=== PATIENT | female | born 1980 | race Caucasian/White ===

== ENCOUNTER 2016-09-26 19:19 | Inpatient (IN) | payer MEDICAID ==
--- NOTE | ~2016-09-26 | PN ---
Unit #: [id number] #: [id number] Patient: ISABEL MOREJON [id number] [facility] [address] [place] [address] [id number] I MR#: [id number] NAME: ISABEL MOREJON ROOM: [facility] Age: 36 Sex: F Admission Date: 09/26/2016 : 1980 Attending Physician: Janell Landry M.D. Admitting Physician: Janell Landry M.D. Primary Care Physician: Generic Doctor Not In System [facility] PROGRESS NOTES DATE 09/30/2016 DISCUSSION Ms. Morejon is a 36-year-old white female who was seen today and chart was reviewed and case was discussed with the staff. She has been complaining of persistent anxiety. Meanwhile, she has been taking medications and tolerating them fairly well with no reported side effects. MENTAL STATUS EXAMINATION Young white female who was casually dressed with fair personal hygiene and appears to be in no acute distress or discomfort. She was awake and alert with impaired attention and concentration. Her mood was anxious with congruent affect. She denies any suicidal or homicidal ideation and also denies any auditory or visual hallucinations. Her insight and judgement remains slightly impaired. TREATMENT PLAN Will continue on current treatment protocol and will monitor her response and make further adjustments as needed. Dictated by... Janell Landry M.D. IAA/joe TD: 09/30/2016 18:14 JOB #: [id number] [facility] PROGRESS NOTES Page 1 of 1 X Janell Landry MD X PROGRESS NOTE
--- NOTE | ~2016-09-26 | PN ---
Unit #: [id number] #: [id number] Patient: ISABEL MOREJON [id number] [facility] [address] [place] [address] [id number] I MR#: [id number] NAME: ISABEL MOREJON. ROOM: P2 Age: 36 Sex: F Admission Date: 09/26/2016 : 1980 Attending Physician: Janell Landry M.D. Admitting Physician: Janell Landry M.D. Primary Care Physician: Brandon Doctor Not In System [facility] PROGRESS NOTES DATE OF SERVICE 09/28/2016 DISCUSSION Ms. Morejon is a 36-year-old white female with mood disorder who was seen today. Chart was reviewed and case was discussed with the staff. She reports not feeling good and has been complaining of persistent anxiety and depression and that Vistaril was making her anxiety worse, so she decided not to take that. Wellbutrin was started yesterday, and she has been taking it without intolerability issues though she reports that her anxiety remains a significant issue at this time. MENTAL STATUS EXAMINATION Young white female who is casually dressed with fair personal hygiene, appears to be in no acute distress or discomfort. The patient was awake and alert with impaired attention and concentration. Her mood is anxious and depressed with congruent affect. She reports having suicidal ideation but denies any homicidal ideations. Her insight and judgment remain slightly impaired. TREATMENT PLAN 1. We will continue her on her current medications and treatment protocol. We will monitor her response to the medications and make further adjustments as needed. We will substitute Vistaril with BuSpar. 2. We will continue to follow up. Dictated by... Edis Moreno/yomaira TD: 09/28/2016 13:33 JOB #: [id number] Unit #: [id number] #: [id number] Patient: ISABEL MOREJON [facility] PROGRESS NOTES Page 1 of 1 X Janell Landry MD PROGRESS NOTE
--- NOTE | ~2016-09-26 | HP ---
Unit #: [id number] #: [id number] Patient: MATILDA LOUISE [id number] [place] [address] [id number] I MR#: [id number] NAME: MATILDA LOUISE. ROOM: P261 Age: 36 Sex: F Admission Date: 09/26/2016 : 1980 Attending Physician: Janell Landry M.D. Admitting Physician: Janell Landry M.D. Primary Care Physician: Generic Doctor Not In System HISTORY AND PHYSICAL HISTORY OF PRESENT ILLNESS Matilda is a 36 year old admitted to [address] [place] [address] with depression and verbalizing wanting to hurt herself. PAST MEDICAL HISTORY Seizure disorder at 18 years old. She has not taken Dilantin in greater than 15 years. PAST SURGICAL HISTORY Breast augmentation. ALLERGIES No known drug allergies. SOCIAL HISTORY Smokes less than 1 pack per day. Drinks alcohol socially. Admits to using marijuana socially. FAMILY HISTORY Medically noncontributory. REVIEW OF SYSTEMS CONSTITUTIONAL: No fever or chills. HEENT: Denies any sore throat, ear pain or runny nose. CARDIOVASCULAR: Denies chest pain, irregular heart rhythm or palpitations. CHEST: Denies shortness of breath or cough. No hemoptysis. GASTROINTESTINAL: Denies nausea, vomiting, diarrhea or chronic constipation. ENDOCRINE: Denies history of increased thirst or urination. No recent significant weight loss or gain. GENITOURINARY: Denies dysuria, frequency, or hematuria. SKIN: Denies any rashes. HEMATOLOGIC: Denies history of increased bleeding or bruising. MUSCULOSKELETAL: Denies any hot, swollen joints. No generalized muscle pain. NEUROLOGIC: Denies problems with vision or speech. No frequent, severe headaches. No numbness, tingling or weakness in any extremities. Denies loss of bladder or bowel control. CURRENT MEDICATIONS 1. Desyrel 100 mg q.h.s. 2. Vitamin D 5000 units q. week. 3. Vistaril 50 mg q. 6 hours p.r.n. Unit #: [id number] #: [id number] Patient: MATILDA LOUISE 4. Milk of Magnesia p.r.n. 5. Maalox p.r.n. 6. Tylenol p.r.n. 7. Ibuprofen 800 mg q. 6 hours p.r.n. PHYSICAL EXAMINATION GENERAL: Alert, well-nourished, in no apparent distress. VITAL SIGNS: Blood pressure 130/88, heart rate 80, respirations 16, temperature 98.6. WEIGHT: 188. HEIGHT: 5 feet 10 inches. SKIN: Warm and dry without rash or lesion. HEENT: Normocephalic. TMs not viewed. Oral and nasal passages clear. Conjunctivae clear. PERRLA. EOMs intact. NECK: Supple without lymphadenopathy or thyromegaly. HEART: Regular rate and rhythm without murmur. LUNGS: Clear. ABDOMEN: Soft, nontender. : Not done. EXTREMITIES: No evidence of cyanosis, clubbing or edema. Moves all without focal deficit. NEUROLOGICAL: Grossly within normal limits. Cranial Nerves: II: Visual carney are intact. III, IV AND : Extraocular movements are intact. Pupils are equal, round and reactive to light. V: Facial sensation is grossly normal. VII: Facial movements and expression are normal. VIII: Auditory acuity grossly intact. IX, X: Uvula is midline. Phonation is normal. XI: Patient shrugs shoulders and turns head normally. XII: Tongue protrudes in the midline. Sensory and Motor Function: Sensory and motor sensation is grossly normal. Motor: moves all extremities well. Coordination: Gait is normal. Deep Tendon Reflexes: Intact. IMPRESSION Psychiatric admission. RECOMMENDATIONS PSYCHIATRIC: Per psychiatrist. MEDICAL: See no contraindication to participate in facility's activities. MEDICAL PROGNOSIS Good. MEDICAL CONDITION Stable. Dictated by... Steff Arzate P.A.-C. for Edis Siu/joe TD: 09/27/2016 17:54 JOB #: [id number] Unit #: [id number] #: [id number] Patient: MATILDA LOUISE HISTORY AND PHYSICAL Page 1 of 1 X Steff Arzate HISTORY AND PHYSICAL
--- NOTE | ~2016-09-26 | PN ---
Unit #: [id number] #: [id number] Patient: ISABEL MOREJON [id number] [facility] [address] [place] [address] [id number] I MR#: [id number] NAME: ISABEL MOREJON ROOM: P258 Age: 36 Sex: F Admission Date: 09/26/2016 : 1980 Attending Physician: Janell Landry M.D. Admitting Physician: Janell Landry M.D. Primary Care Physician: Brandon Doctor Not In System [facility] PROGRESS NOTES DATE 10/01/2016 DISCUSSION Ms. Morejon is a 36-year-old white female who was seen today and chart was reviewed and case was discussed with the staff. She has been doing fairly well and has been showing improvement in her depression and anxiety and has been taking the medications and tolerating them fairly well with no reported side effects. MENTAL STATUS EXAMINATION Young white female who was casually dressed with fair personal hygiene, appears to be in no acute distress or discomfort. She was awake and alert with impaired attention and concentration. Her mood was anxious with congruent affect. She denies any suicidal or homicidal ideations. Her insight and judgement remains slightly impaired. TREATMENT PLAN 1. We will continue her on her current treatment protocol. We will monitor her response to the medication and make further adjustments as needed. 2. We will continue to follow up. Dictated by... Edis Moreno/nell TD: 10/03/2016 02:24 JOB #: [id number] Unit #: [id number] #: [id number] Patient: ISABEL MOREJONLIZETTE PROGRESS NOTES Page 1 of 1 X Janell Landry MD PROGRESS NOTE
--- NOTE | ~2016-09-26 | PN ---
Unit #: [id number] #: [id number] Patient: ISABEL MOREJON [id number] [facility] [address] [place] [address] [id number] MR#: [id number] NAME: ISABEL MOREJON. ROOM: [facility] Age: 36 Sex: F Admission Date: 09/26/2016 : 1980 Attending Physician: Janell Landry M.D. Admitting Physician: Janell Landry M.D. Primary Care Physician: Generic Doctor Not In System [facility] PROGRESS NOTES DATE September 29, 2016 DISCUSSION Ms. Morejon is a 36-year-old white female, who was seen today and chart was reviewed and the case was discussed with the staff. She has been anxious, withdrawn, and rather seclusive to herself, though she reports that anxiety has been better since BuSpar has been added. The patient has been taking the medications and tolerating them fairly well with no reported side effects. MENTAL STATUS EXAMINATION Young white female, who was casually dressed with fair personal hygiene and appears to be in no acute distress or discomfort. The patient was awake and alert on interaction with intact orientation. Her mood was anxious with a congruent affect. The patient denies any suicidal or homicidal ideations. Her insight and judgment remain slightly impaired. TREATMENT PLAN 1. We will continue her on her current medications and treatment protocol, and will monitor her response, and make further adjustments as needed. 2. We will continue to followup. Dictated by... Edis Moreno/socrates TD: 09/29/2016 12:49 JOB #: [id number] Unit #: [id number] #: [id number] Patient: ISABEL MOREJON [facility] PROGRESS NOTES Page 1 of 1 X Janell Landry MD PROGRESS NOTE
--- NOTE | ~2016-09-26 | DS ---
Unit #: [id number] #: [id number] Patient: ISABEL LOUISE [id number] [facility] [place] [address] [id number] I MR#: [id number] NAME: ISABEL LOUISE ROOM: P258 Age: 36 Sex: F Admission Date: 09/26/2016 : 1980 Discharge Date: 10/02/2016 Attending Physician: Janell Landry M.D. DISCHARGE SUMMARY IDENTIFYING DATA Ms. Black is a 36-year-old, , white female, who is a resident of [place], [place], and was brought to the hospital on a voluntary basis. DISCHARGE DIAGNOSES Psychiatric: Major depressive disorder, recurrent, moderate, without psychotic features. Medical: Endometriosis. Polycystic ovarian disease. Stressors: Mild psychosocial stressors. HISTORY OF PRESENT ILLNESS Ms. Louise is a 36-year-old white female, who presented to the hospital stating that she has been significantly depressed related to several psychosocial stressors including grief, unemployment, and relationship issues and reported suicidal ideation, but has not had a specific plan. Recently, the patient reports her mother overdosed on medications, thinks about this, and the patient reports poor sleep and appetite, poor energy level, and psychomotor retardation. The patient reports that she has experienced physical illness due to her depressive episodes, resulting in stomach problems and missing work and she has recently lost her job related to missing work and also reports panic attacks keeping her from going to work. The patient reports living with her daughter and boyfriend and has been since 2010 and has had several other significant stressors leading to decompensation in her mood, depression, and inability to function, now reports feelings of hopelessness and helplessness, and suicidal ideations. PAST PSYCHIATRIC HISTORY The patient has had a history of outpatient psychiatric treatment at different facilities in the past. Review of the medical records indicate that she has been on Wellbutrin, but has not been able to show a therapeutic response. PAST MEDICAL HISTORY The patient's medical history is significant for endometriosis, polycystic ovarian disease. HOSPITAL COURSE The patient was admitted to the adult psychiatric unit at [facility]ia [facility] and was oriented to the hospital environment. Routine p.r.n. medications were initiated, and she was started back on her home medications and Wellbutrin was initiated, it was gradually titrated up. She was taking the medications regularly and was tolerating them fairly well and was able to show a decent therapeutic response and as such, it Unit #: [id number] #: [id number] Patient: ISABEL LOUISE was decided that she will be discharged home. We will continue with treatment on an outpatient basis. DISCHARGE MEDICATIONS Wellbutrin XL 300 mg in the morning for depression and BuSpar 10 mg b.i.d. for anxiety. DISCHARGE CONDITION Stable. PROGNOSIS Fair. Dictated by... Edis Moreno/alfredo TD: 10/02/2016 15:28 JOB #: [id number] DISCHARGE SUMMARY Page 1 of 1 X Janell Landry MD X DISCHARGE SUMMARY
--- NOTE | ~2016-09-26 | PA ---
Unit #: [id number] #: [id number] Patient: ISABEL MOREJON [id number] [place] [address] [id number] I MR#: [id number] NAME: ISABEL MOREJON ROOM: P130 Age: 36 Sex: F Admission Date: 09/26/2016 : 1980 Date of Assessment: Attending Physician: Janell Landry M.D. Admitting Physician: Janell Landry M.D. Primary Care Physician: Generic Doctor Not In System PSYCHIATRIC ASSESSMENT IDENTIFYING DATA Ms. Morejon is a 36-year-old, , white female, who is a resident of [place], [place], and was self-referred to the hospital on a voluntary basis. CHIEF COMPLAINT "I'm struggling with my life." HISTORY OF PRESENT ILLNESS Ms. Morejon is a 36-year-old white female, who presented to the hospital stating that she has been significantly depressed related to several psychosocial stressors including grief, unemployment, and relationship issues and reported suicidal ideation, but has not had a specific plan. Recently, the patient reports her mother overdosed on medications, thinks about this, and the patient reports poor sleep and appetite, poor energy level, and psychomotor retardation. The patient reports that she has experienced physical illness due to her depressive episodes, resulting in stomach problems and missing work and she has recently lost her job related to missing work and also reports panic attacks keeping her from going to work. The patient reports living with her daughter and boyfriend and has been since 2010 and has had several other significant stressors leading to decompensation in her mood, depression, and inability to function, now reports feelings of hopelessness and helplessness, and suicidal ideations. SUBSTANCE ABUSE HISTORY The patient reports history of cannabis abuse, reporting that she has been using cannabis twice a week. PAST PSYCHIATRIC HISTORY The patient has had a history of outpatient psychiatric treatment at different facilities in the past. Review of the medical records indicate that she has been on Wellbutrin, but has not been able to show a therapeutic response. PAST MEDICAL HISTORY The patient's medical history is significant for endometriosis, polycystic ovarian disease. ALLERGIES No known medication allergies. PERSONAL AND SOCIAL HISTORY Unit #: [id number] #: [id number] Patient: MOREJON,ISABEL L A 36-year-old white female, who reports that she is single, unemployed, and lives with her daughter and daughter's boyfriend. MENTAL STATUS EXAMINATION Young white female, who was casually dressed with fair personal hygiene, appears to be in no acute distress or discomfort. She was awake and alert on interaction with intact orientation to time, place, and person. Her mood was anxious and depressed with a congruent affect. Her speech was slow and restricted in content. She reports having suicidal ideations, but denies any homicidal ideations, and also denies any auditory or visual hallucinations. Her insight and judgment remain significantly impaired. DIAGNOSTIC IMPRESSION Psychiatric: Major depressive disorder, recurrent, moderate, without psychotic features. Medical: Endometriosis, polycystic ovarian disease. Stressors: Moderate psychosocial stressors. TREATMENT PLAN 1. The patient has presented with a history of mood disorder and has been decompensating and will need inpatient hospitalization for safety and stabilization. We will start her back on her home medications. We will monitor her response and make further adjustments as needed. 2. Supportive therapy was provided to the patient. 3. Safe, structured, and nourishing environment will be reported. ESTIMATED LENGTH OF STAY 5 to 7 days. ABILITY TO HELP SELF Limited. WILLINGNESS TO HELP SELF The patient appears to be willing to help self. STRENGTHS 1. Communicative. 2. Cooperative. PROBLEMS 1. Chronic dysphoric symptoms. 2. Poor social support system. DISCHARGE CRITERIA This will be contingent upon the patient's ability to show resolution of her depression and anxiety and her ability to stay safe to herself and others, particularly after discharge from the hospital. Dictated by... Janell Landry M.D. JEFF/alfredo TD: 09/27/2016 07:13 Unit #: [id number] #: [id number] Patient: ISABEL MOREJNO JOB #: [id number] PSYCHIATRIC ASSESSMENT Page 1 of 1 X Janell Landry MD PSYCHIATRIC ASSESSMENT
[~2016-09-26 19:19] MED LIST: ALDACTONE100 MG PO; CELEXA PO; DELSYM COUGH+C180 M1 PO; IMODIUM2 MG PO; SINGULAIR PO; ZOFRAN PO; ZYRTEC PO
[2016-09-27 09:41] LABS: BASOPHIL% 0.4 % (0-2.5); EOSINOPHIL# 0.1 X10e3 (0-0.7); EOSINOPHIL% 1.9 % (0.0-7.0); HEMATOCRIT 43.6 % (35.0-45.0); HEMOGLOBIN 14.5 gm/dL (12.0-16.0); LYMPHOCYTE# 2.9 X10e3 (1.0-3.5); LYMPHOCYTE% 41.6 % (17.0-45.0); MEAN CELL VOLUME 95.9 FL (83-96); MEAN CORPUSCULAR HEMOGLOBIN 31.8 PG (28-34); MEAN CORPUSCULAR HGB CONC 33.2 g/dL (30-36); MEAN PLATELET VOLUME 8.2 FL (6.5-11.5); MONOCYTE# 0.5 X10e3 (0-1.0); MONOCYTE% 7.5 % (3.0-12.0); NEUTROPHIL# 3.4 X10e3 (1.5-7.1); NEUTROPHIL% 48.6 % (40-75); PLATELET COUNT 188 X10e3 (140-420); RED BLOOD COUNT 4.54 X10e (3.90-5.30); RED CELL DISTRIBUTION WIDTH 12.6 % (11.0-15.5)
[2016-09-27 09:51] LABS: DIFF IND NO
[2016-09-27 09:56] LABS: ALBUMIN SERUM 3.9 g/dL (3.5-5.0); BILIRUBIN,TOTAL 0.6 mg/dL (0.2-2.0); BUN/CREATININE RATIO 21.66; CALCIUM SERUM 9.2 mg/dL (8.4-10.2); CREATININE SERUM 0.6 mg/dL (0.6-1.4); GLOM FILT RATE Estimated 118.9 mL/min (>60); POTASSIUM 3.9 mmol/L (3.5-5.1); PROTEIN TOTAL SERUM 6.7 g/dL (6.0-8.3)
[2016-10-02 09:44] LABS: URINE APPEARANCE CLEAR; URINE BILIRUBIN NEG (NEG); URINE BLOOD 2+ (NEG); URINE COLOR YELLOW; URINE GLUCOSE NEG (NEG); URINE KETONE NEG (NEG); URINE LEUKOCYTE ESTERASE TRACE (NEG); URINE NITRATE NEG (NEG); URINE PROTEIN NEG (NEG); URINE UROBILINOGEN 0.2 MG/DL (NEG)
[2016-10-02 09:48] LABS: URINE BACTERIA AUWI 2+ (NEGATIVE); URINE SQUAMOUS EPITHELIAL CELL NONE SEEN /[HPF]; UWBCS1 AUWI 0-2 (0-5)
[2016-10-02 10:13] LABS: AMPHETAMINE NEG (NEG); BARBITURATES NEG (NEG); BENZODIAZEPINES NEG (NEG); COCAINE NEG (NEG); MARIJUANA POS (NEG); OPIATES NEG (NEG); TRICYCLIC ANTIDEPRESSANTS NEG (NEG); U METHADONE NEG (NEG)
[2016-12-27] MEDS ORDERED: BUPROPION XL300 M1 (13:25)
[2016-12-27] MEDS ORDERED: FLONASE ALLERG9.9 ML (13:25)
[2016-12-27] MEDS ORDERED: ADVIL200 M1 (13:26)
[2016-12-27] MEDS ORDERED: PRENATAL FORMU1 EAC1 PO (13:26)
[2016-12-27] MEDS ORDERED: TRILEPTAL300 MG PO (13:27)
[2016-12-27] MEDS ORDERED: BUSPAR15 M3 (14:30)
== END 2016-10-02 09:45 | disposition home or self-care (01) | DRG 885 ==
LOC: P2L 21:11 → P1S 21:11 → P2L 09-27 14:06
PROVIDERS: Psychiatry & Neurology Psychiatry
DX: F33.1 Major depressive disorder, recurrent, moderate (principal); E28.2 Polycystic ovarian syndrome; N80.9 Endometriosis, unspecified
CPT/HCPCS: 80053; 80307; 81003; 85025

== ENCOUNTER → 2016-12-20 | Outpatient (CLI) | payer MEDICAID ==
[~2016-12-20] MED LIST changes: +ADVIL200 M1; +BUPROPION XL300 M1; +BUSPAR15 M3; +FLONASE ALLERG9.9 ML; +PRENATAL FORMU1 EAC1 PO; +TRILEPTAL300 MG PO
--- NOTE | ~2016-12-20 | US6 ---
[facility] A Service of [facility] RADIOLOGY TEXT RESULTS PATIENT: ISABEL LOUISE LOCATION: [facility] : [birth year] UNIT #: [id number] AGE: [address]: Anderson Nichole MD SEX: F ORDER DR: [id number] [facility] [address] [place], [place] [address] [id number] O MR#: [id number] Acc #: [id number] NAME: ISABEL LOUISE : 1980 SEX: F STUDY DATE/TIME: 12/20/2016 12:02 UNIT: [facility] ROOM: STUDY DESCRIPTION: US Abdominal Limited Attending Physician: Anderson Nichole Jr., M.D. Referring Physician: Anderson Nichole Jr., M.D. Ordering Physician: Anderson Nichole Jr., M.D. Primary Care Physician: Generic Doctor Not In System MEDICAL IMAGING REPORT This report is preliminary unless electronic signature is present REVISED REPORT EXAM Right upper quadrant ultrasound 12/20/2016 HISTORY Right upper quadrant abdominal pain and nausea for 5 days. FINDINGS Ultrasound examination of the right upper quadrant is negative. There is no cholelithiasis, gallbladder wall thickening, or bile duct dilatation. The visualized liver is negative. IMPRESSION Negative right upper quadrant ultrasound examination. Dictated by... Brandon Gore M.D. THIS IS AN ELECTRONICALLY VERIFIED REPORT Brandon Gore M.D. at 12/22/2016 8:10 AM BARTOLO/kelly TD: 12/20/2016 13:27 JOB #: [id number] CC: Sovera/invision Please Delete MEDICAL IMAGING REPORT Page 1 of 1 COPY
--- NOTE | ~2016-12-20 | NM22 ---
[facility] A Service of [facility] RADIOLOGY TEXT RESULTS PATIENT: ISABEL LOUISE LOCATION: [facility] : 84 UNIT #: [id number] AGE: [address]: Anderson Nichole MD SEX: F ORDER DR: [id number] [place] [id number] [facility]. [place], [place] [address] [id number] O MR#: [id number] Acc #: [id number] NAME: ISABEL LOUISE : 1980 SEX: F STUDY DATE/TIME: 12/20/2016 13:02 UNIT: [facility] ROOM: STUDY DESCRIPTION: NM Hepatobiliary W GB Pharm Attending Physician: Anderson Nichole Jr., M.D. Referring Physician: Anderson Nichole Jr., M.D. Ordering Physician: Anderson Nichole Jr., M.D. Primary Care Physician: Generic Doctor Not In System MEDICAL IMAGING REPORT This report is preliminary unless electronic signature is present EXAM Hepatobiliary study with gallbladder stimulation. INDICATION Abdominal pain, nausea, vomiting and belching for 5 days. FINDINGS The patient was given 5.5 mCi of Tc-99m Choletec and there was normal distribution throughout the liver with visualization of the gallbladder, small bowel and common bile duct at 15 minutes. At 60 minutes, patient was given 1.7 mcg of Kinevac and the 30-minute ejection fraction was 90.2%. IMPRESSION Normal study with an ejection fraction of 90.2%. STAT * RESULT Dictated by... Chuy Fisher M.D. THIS IS AN ELECTRONICALLY VERIFIED REPORT hCuy Fisher M.D. at 12/20/2016 3:29 PM FEL/bd TD: 12/20/2016 14:44 JOB #: [id number] [facility] A Service [facility] RADIOLOGY TEXT RESULTS PATIENT: ISABEL LOUISE LOCATION: [facility] #: [id number] : 84 UNIT #: [id number] AGE: [address]: Anderson Nichole MD SEX: F ORDER DR: MEDICAL IMAGING REPORT Page 1 of 1 COPY
== END | disposition home or self-care (01) ==
LOC: CGUS 11:25
DX: R10.9 Unspecified abdominal pain (principal)
CPT/HCPCS: 76705; 78227; A9537; J2805